=== PATIENT | female | born 1965 | race Caucasian/White ===

== ENCOUNTER 2017-02-16 14:26 | Emergency (ER) | payer OTHER ==
[2017-02-16 14:52] VITALS: TEMP 97.8; O2SAT 99
[2017-02-16 15:04] LABS: ABG ALLEN TEST YES; ARTERIAL BLOOD GAS HCO3 24.9 mmol/L (21-28); ARTERIAL BLOOD GAS O2 CAPACITY 18.9 mL/dL (16-24); ARTERIAL BLOOD GAS O2 CONTENT 18.7 ML/dL (15-23); ARTERIAL BLOOD GAS PH 7.44 (7.35-7.45); ARTERIAL BLOOD GAS PO2 84 mm/Hg (80-100); ARTERIAL BLOOD HGB O2 SAT 94.9 % (95.0-98.0); CARBOXYHEMOGLOBIN 2.5 % (0.5-1.5); HHB 0.9 % (0.0-5.0); METHEMOGLOBIN 1.7 % (0.0-3.0)
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
[2017-02-16] MEDS ORDERED: Oxycodone/Acetaminophen 5/325 mg Tab PO STA (15:40)
[2017-02-16] MEDS ORDERED: Oxycodone/Acetaminophen 5/325 mg Tab ONE (15:55)
--- NOTE | 2017-02-16 16:16 | RAD ---
PROCEDURE: Left Knee Radiographs. HISTORY: COMPARISON: None available FINDINGS: Rotated lateral view. BONES: No acute displaced fracture. JOINTS: No dislocation. JOINT EFFUSION: No significant joint effusion. OTHER FINDINGS: None. IMPRESSION: No acute displaced fracture, dislocation, or significant joint effusion identified. If symptoms persist, or if there is continued clinical concern, x-ray follow-up in 7-10 days should be considered.
[2017-02-16 17:05] VITALS: BP 122/69; PULSE 80; RESP 20
--- NOTE | 2017-02-16 17:39 | RAD ---
HISTORY: chest "congestion" COMPARISON: None available. TECHNIQUE: Chest PA and lateral FINDINGS: Emanation limited by habitus and hypoinflation. LUNGS: No focal consolidation. Please note that chest x-ray has limited sensitivity for the detection of pulmonary masses. PLEURA: No significant pleural effusion identified. No definite pneumothorax . CARDIOVASCULAR: The cardiomediastinal silhouette appears within normal limits of size. OSSEOUS STRUCTURES: No acute osseous abnormality identified. VISUALIZED UPPER ABDOMEN: Elevation of the right hemidiaphragm. OTHER FINDINGS: None. IMPRESSION: Hypoinflation. Elevation of the right hemidiaphragm.
--- NOTE | 2017-02-17 09:28 | CARD ---
APPROVED REPORT EKG Measurement Heart [id number] 140P35 [id number] <Conclusion> Normal sinus rhythm Normal ECG
== END 2017-02-16 19:06 | disposition home or self-care (01) ==
LOC: H.ER 14:26
DX: S89.92XA Unspecified injury of left lower leg, initial encounter (principal); X50.9XXA Other and unspecified overexertion or strenuous movements or postures, initial encounter; Y92.003 Bedroom of unspecified non-institutional (private) residence as the place of occurrence of the external cause

== ENCOUNTER 2017-12-26 19:55 | Emergency (ER) | payer OTHER ==
[2017-12-26 20:03] VITALS: RESP 16; O2SAT 99
[2017-12-26 22:17] LABS: BASO # 0.1 K/uL (0.0-0.2); EOS # 0.1 K/uL (0.0-0.7); EOS % 2.2 % (0.0-4.0); HEMOGLOBIN 13.1 g/dL (12.0-16.0); LYMPH # 1.4 K/uL (1.0-4.3); LYMPH % 25.1 % (20.0-40.0); MEAN CELL VOLUME 87.7 fl (81.0-99.0); MEAN CORPUSCULAR HEMOGLOBIN 28.7 pg (27.0-31.0); MEAN CORPUSCULAR HGB CONC 32.7 g/dL (33.0-37.0); MEAN PLATELET VOLUME 9.3 fl (7.2-11.7); MONO # 0.5 K/uL (0.0-0.8); MONO % 8.7 % (0.0-10.0); NEUT # 3.6 K/uL (1.8-7.0); NRBC % 0.2 % (0.0-0.0); RBC 4.56 Mil/uL (3.80-5.20); RED CELL DISTRIBUTION WIDTH 13.8 % (11.5-14.5); WHITE BLOOD COUNT 5.7 K/uL (4.8-10.8)
--- NOTE | 2017-12-26 22:24 | ED PDOC ---
HPI: Chest Pain Time Seen by Provider: 12/26/17 20:17 Chief Complaint (Nursing): Chest Pain Chief Complaint (Provider): Chest pain History Per: Patient History/Exam Limitations: no limitations Onset/Duration Of Symptoms: Days (x3) Current Symptoms Are (Timing): Still Present Quality: "Pain" Associated Symptoms: denies: Dyspnea, Diaphoresis Additional Complaint(s): Derrick Hays is a 52 year old female, with no significant past medical history, who presents to the emergency department complaining of left sided chest pain onset for x3 days. Patient states pain does not radiate and is not associated with shortness of breath or diaphoresis. No cardiac family history. She denies any fever, chills or cough. No further medical complaints. States pain is worse when moving shoulder. Denies injury. PMD: [facility]. Past Medical History Reviewed: Historical Data, Nursing Documentation, Vital Signs Vital Signs: Last Vital Signs Temp 98.1 F 12/26/17 19:59 Pulse 86 12/26/17 19:59 Resp 16 12/26/17 19:59 BP 125/70 12/26/17 19:59 Pulse Ox 99 12/26/17 22:29 - Medical History PMH: No Chronic Diseases - Surgical History Surgical History: No Surg Hx - Family History Family History: States: Unknown Family Hx - Social History Current smoker - smoking cessation education provided: No Alcohol: None Drugs: Denies - Home Medications Home Medications: Ambulatory Orders Medication Instructions Recorded traMADol [Ultram] 50 mg PO Q6H PRN #15 tab 02/16/17 Ibuprofen [Motrin Tab] 600 mg PO Q6 #30 tab 12/27/17 - Allergies Allergies/Adverse Reactions: Allergies Allergy/AdvReac Type Severity Reaction Status Date / Time No Known Allergies Allergy Verified 12/26/17 19:59 Review of Systems ROS Statement: Except As Marked, All Systems Reviewed And Found Negative Constitutional: Negative for: Fever, Chills Cardiovascular: Positive for: Chest Pain Respiratory: Negative for: Cough, Shortness of Breath Physical Exam - Reviewed Nursing Documentation Reviewed: Yes Vital Signs Reviewed: Yes - Physical Exam Appears: Positive for: Well, Non-toxic, No Acute Distress Head Exam: Positive for: ATRAUMATIC, NORMAL INSPECTION, NORMOCEPHALIC Skin: Positive for: Normal Color, Warm, Dry. Negative for: Rash Eye Exam: Positive for: Normal appearance, EOMI, PERRL Neck: Positive for: Painless ROM, Supple Cardiovascular/Chest: Positive for: Regular Rate, Rhythm. Negative for: Murmur Respiratory: Positive for: Normal Breath Sounds. Negative for: Respiratory Distress Gastrointestinal/Abdominal: Positive for: Normal Exam, Soft. Negative for: Tenderness, Guarding, Rebound Back: Positive for: Normal Inspection. Negative for: L CVA Tenderness, R CVA Tenderness Extremity: Positive for: Normal ROM. Negative for: Tenderness, Pedal Edema, Calf Tenderness, Deformity, Swelling Neurologic/Psych: Positive for: Alert, Oriented. Negative for: Motor/Sensory Deficits - Laboratory Results Result Diagrams: 12/26/17 22:13 12/26/17 22:13 - ECG O2 Sat by Pulse Oximetry: 99 (RA) Pulse Ox Interpretation: Normal Medical Decision Making Medical Decision Making: Initial Impression: Non specific chest pain. Initial Plan: --EKG --BMP --Troponin I --CBC w/ differential --PTT --PT --Chest two views (PA/LAT) [RAD] --Toradol 30 mg IVP --Cake Cutter Machine CONT. --Reevaluation -Patient is >50 but no well's significant risk factors. Will obtain cardiac troponin, CXR, and reevaluate for admission or discharge. 2AM Patient has two negative troponins and two normal EKG's, patient reports resolution of symptoms. Advised to followup with cardiology and primary care doctor. Return precautions were discussed including worsening CP, SOB, sweats, or any other concerning symptoms. Patient well appearing, stable, improved. Scribe Attestation: Documented by Tuan Murray, acting as a scribe for Edward Wilson MD Provider Scribe Attestation: All medical record entries made by the Scribe were at my direction and personally dictated by me. I have reviewed the chart and agree that the record accurately reflects my personal performance of the history, physical exam, medical decision making, and the department course for this patient. I have also personally directed, reviewed, and agree with the discharge instructions and disposition. Disposition - Clinical Impression Clinical Impression: Atypical chest pain - Patient ED Disposition Is Patient to be Admitted: No - Disposition Referrals: [facility] [Outside] [facility] [Outside] Dov Mcclure MD [Staff Provider] - Disposition: Routine/Home Disposition Time: 02:12 Condition: IMPROVED Prescriptions: Ibuprofen [Motrin Tab] 600 mg PO Q6 #30 tab Instructions: Chest Pain That Is Not Caused by the Heart (DC) Forms: [place] (Georgian) Print Language: SETSWANA
[2017-12-26 22:26] LABS: BLOOD UREA NITROGEN 15 mg/dl (7-17); CALCIUM 9.8 mg/dL (8.4-10.2); GFR AFRICAN-AMERICAN > 60; GFR NON-AFRICAN AMERICAN > 60
[2017-12-26 22:48] LABS: PROTHROMBIN TIME 10.5 Seconds (9.8-13.1)
[2017-12-27 02:25] VITALS: BP 108/60; PULSE 72; TEMP 98.7
--- NOTE | 2017-12-27 08:09 | CARD ---
APPROVED REPORT EKG Measurement Heart [id number] <Conclusion> Normal sinus rhythm Normal ECG
--- NOTE | 2017-12-27 08:49 | RAD ---
HISTORY: CP COMPARISON: Chest radiographs 02/16/2017. TECHNIQUE: Chest PA and lateral FINDINGS: LUNGS: No active pulmonary disease. Improved inspiratory volume. PLEURA: No significant pleural effusion identified. No pneumothorax apparent. CARDIOVASCULAR: Normal. OSSEOUS STRUCTURES: No significant abnormalities. VISUALIZED UPPER ABDOMEN: Mild right hemidiaphragm elevation again evident. OTHER FINDINGS: None. IMPRESSION: No interval acute cardiopulmonary disease appreciated.
--- NOTE | 2017-12-27 11:31 | CARD ---
APPROVED REPORT EKG Measurement Heart [id number] 128P12 [id number] <Conclusion> Normal sinus rhythm Normal ECG
== END 2017-12-27 02:39 | disposition home or self-care (01) ==
LOC: H.ER 19:55
DX: R07.89 Other chest pain (principal); R05 Cough
CPT/HCPCS: 71046; 80048; 84484; 85025; 85610; 85730; 93005; 96374; 99284; J1885